=== PATIENT | male | born 1990 | race African-American/Black ===

== ENCOUNTER 2018-10-14 12:38 | Emergency (ER) | payer MEDICAID, OTHER ==
[~2018-10-14] VITALS: Ht 175.3 cm; Wt 86.0 kg
[2018-10-14] MEDS ORDERED: SODIUM CHLORIDE 0.9% 100 ML IV ONE (15:00)
[2018-10-14] MEDS ORDERED: FAMOTIDINE 20MG/2ML VIAL IV ONE (15:00)
[2018-10-14] MEDS ORDERED: ONDANSETRON HCL 4MG/2ML INJ IV ONE (15:00)
[2018-10-14] MEDS ORDERED: MAGNESIUM/ALUMINUM HYDROXIDE/SIMETHICONE 30ML UDC PO ONE (15:00)
[2018-10-14 16:48] VITALS: BP 112/67
== END 2018-10-14 16:53 | disposition home or self-care (01) ==
LOC: ER 13:15
DX: R42 Dizziness and giddiness (principal); R53.1 Weakness; R61 Generalized hyperhidrosis; R10.13 Epigastric pain; Z88.6 Allergy status to analgesic agent
CPT/HCPCS: 93005; 96361; 96374; 96375; 99283; J2405; J3490; Z7610